=== PATIENT | male | born 1985 | race Two or more races ===

== ENCOUNTER 2017-03-26 20:58 | Emergency (ER) | payer SELFPAY ==
[~2017-03-26] VITALS: Ht 175.3 cm; Wt 113.6 kg
[2017-03-26 21:00] VITALS: BP 131/98
[2017-03-26] MEDS ORDERED: IBUPROFEN 600MG TABLET PO ONE (21:30)
== END 2017-03-26 22:14 | disposition home or self-care (01) ==
LOC: ER 20:58
DX: M79.672 Pain in left foot (principal); M79.671 Pain in right foot
CPT/HCPCS: 99283